=== PATIENT | male | born 1980 | race American Indian/Alaskan Native ===

== ENCOUNTER 2017-10-12 22:45 | Emergency (ER) | payer MEDICAID ==
[2017-10-12 22:51] VITALS: TEMP 98.1
--- NOTE | 2017-10-12 23:04 | ED PDOC ---
Upper Extremity Pain/Injury Time Seen by Provider: 10/12/17 23:00 Chief Complaint (Nursing): Upper Extremity Problem/Injury History Per: Patient Onset/Duration Of Symptoms: Hrs (1) Current Symptoms Are (Timing): Still Present Severity: Moderate Additional Complaint(s): Fell down steps with injury to left shoulder. Feels dislocated. Unable to move shoulder. No other injury. Past Medical History Vital Signs: Last Vital Signs Temp 98.1 F 10/12/17 22:49 Pulse 70 10/12/17 22:49 Resp 16 10/12/17 22:49 BP 183/109 H 10/12/17 22:49 Pulse Ox 98 10/12/17 22:49 - Medical History PMH: Hypercholesterolemia - Family History Family History: States: Unknown Family Hx - Allergies Allergies/Adverse Reactions: Allergies Allergy/AdvReac Type Severity Reaction Status Date / Time No Known Allergies Allergy Verified 10/12/17 22:49 Review of Systems Musculoskeletal: Positive for: Shoulder Pain Neurological: Negative for: Weakness, Numbness Physical Exam - Physical Exam Appears: Positive for: Non-toxic, Uncomfortable Head Exam: Positive for: ATRAUMATIC, NORMAL INSPECTION, NORMOCEPHALIC Skin: Positive for: Normal Color, Warm, DRY Pulses-Radial (L): 2+ Pulses-Radial (R): 2+ Extremity: Positive for: Other (Left shoulder ant inf deformity) Neurologic/Psych: Positive for: Alert, Oriented. Negative for: Motor/Sensory Deficits - ECG O2 Sat by Pulse Oximetry: 98 Disposition - Clinical Impression Clinical Impression: Anterior shoulder dislocation - Patient ED Disposition Is Patient to be Admitted: Transfer of Care - Disposition Disposition: Transfer of Care Disposition Time: 00:09 Condition: FAIR Forms: [facility] (Hebrew) Patient Signed Over To: Heather Lyn
[2017-10-12] MEDS ORDERED: Midazolam 2 MG/2 ML VIAL IV ONE (23:21)
[2017-10-13 00:09] VITALS: O2SAT 98
--- NOTE | 2017-10-13 01:25 | ED PDOC ---
- ECG O2 Sat by Pulse Oximetry: 98 Pulse Ox Interpretation: Normal Medical Decision Making Medical Decision Makin Patient endorsed to me by Dr. Lyn pending repeat xray status post shoulder reduction. 135 Pt's maritza-reduction x-ray shows successful re-alignment of shoulder. Will d/c in sling with instructions to followup with ortho. Patient feeling well, stable upon discharge, awake and alert. Disposition - Clinical Impression Clinical Impression: Anterior shoulder dislocation - POA Present On Arrival: None - Disposition Referrals: Nitin Quigley III, MD [Staff Provider] - Disposition: Routine/Home Disposition Time: 01:37 Condition: IMPROVED Prescriptions: Naproxen [Naprosyn] 500 mg PO BID #30 tablet Instructions: Shoulder Dislocation Forms: [facility] (Wolof)
[2017-10-13 05:59] VITALS: BP 122/77; PULSE 65; RESP 12
--- NOTE | 2017-10-13 08:46 | RAD ---
PROCEDURE: Radiographs of the Left Shoulder HISTORY: post reduction COMPARISON: 10/12/2017. FINDINGS: BONES: There is no acute displaced fracture or bone destruction. JOINTS: Status post close reduction, there is near normal glenohumeral alignment. . Glenohumeral and acromioclavicular joints preserved. No osteoarthritis. SOFT TISSUES: Normal. OTHER FINDINGS: None. IMPRESSION: Successful closed reduction of anterior inferior glenohumeral dislocation.
--- NOTE | 2017-10-13 08:47 | RAD ---
PROCEDURE: Radiographs of the Left Shoulder HISTORY: dislocation COMPARISON: No prior. FINDINGS: BONES: There is no acute displaced fracture or bone destruction. Bone mineralization is normal. JOINTS: There is anterior inferior glenohumeral dislocation. The acromioclavicular joint is normal. SOFT TISSUES: Normal. OTHER FINDINGS: None. IMPRESSION: Anterior inferior glenohumeral dislocation.
== END 2017-10-13 02:08 | disposition home or self-care (01) ==
LOC: H.ER 22:45
DX: S43.015A Anterior dislocation of left humerus, initial encounter (principal); W10.8XXA Fall (on) (from) other stairs and steps, initial encounter; Y92.89 Other specified places as the place of occurrence of the external cause
CPT/HCPCS: 23655; 73020; 94770; 96374; 99284; J2250; J2270